=== PATIENT | female | born 1985 | race Caucasian/White ===

== ENCOUNTER 2016-12-19 09:15 | Day surgery (SDC) | payer OTHER ==
[~2016-12-19] VITALS: Ht 121.9 cm; Wt 20.0 kg
[~2016-12-19 09:15] MED LIST: CLON.5 GT; LEVE100S7 GT; LEVO100S GT; PHEN20EL5 GT; PHENL GT; SODIUM CHLORIDE 0.9% 1,000 ML IV ONE; TOPI100 GT; VALP5L GT
[2016-12-19] MEDS ORDERED: [UNRECOGNIZED DRUG - OTHER] GT (09:51)
[2016-12-19] MEDS ORDERED: NALOXONE HCL 1 MG/ML 2 ML SYG IVP PRN (11:30)
[2016-12-20] MEDS ORDERED: HYDROGEN PEROXIDE 473 ML SOLUTION TP SCH (09:00)
[2016-12-20] MEDS ORDERED: POVIDONE-IODINE 120 ML SOLUTION TP SCH (09:00)
== END 2016-12-19 13:05 | disposition home or self-care (01) ==
LOC: SURGERY 09:15
PROVIDERS: ATTEND Internal Medicine Gastroenterology
DX: K94.29 Other complications of gastrostomy (principal)
CPT/HCPCS: 43246; J7030